=== PATIENT | male | born 1940 | race African-American/Black ===

== ENCOUNTER 2016-12-23 20:10 | Inpatient (IN) | payer MEDICARE, MEDICAID ==
[~2016-12-23] VITALS: Ht 172.7 cm; Wt 57.6 kg
[2016-12-23 20:00] VITALS: BP 116/77
[~2016-12-23 20:10] MED LIST: ACET-2178 PO; AMLO10TA80 PO; ATOR10TA69 PO; CALC0.253 PO; CINA30 PO; COR12 PO; DONE5TAB33 PO; FOLI0.8T23 PO; HYDR-4134 PO; INSLAN SQ; LEVVL SQ; LORA-250 PO; LORA1TAB PO; MEMA10TA11 PO; QUET25TA PO; SEVE800T8 PO; SEVELAMER CARBONATE PO; TRAZ-129 PO
[2016-12-23 20:15] VITALS: BP 116/77
[2016-12-23] MEDS: HYDRALAZINE HCL 25MG TABLET PO SCH (22:30)
[2016-12-23] MEDS: BLOOD SUGAR DIAGNOSTIC STRIP TEST SCH (22:30)
[2016-12-23] MEDS: AMLODIPINE 10MG TABLET PO SCH (22:30)
[2016-12-24] VITALS: BP 111/80
[2016-12-24] MEDS: IPRATROPIUM/ALBUTEROL 0.5-3(2.5)MG/3ML NEB HHN SCH ×4 (01:08→20:04)
[2016-12-24] MEDS: INSULIN LISPRO 100 UNITS/ML SUBCUT SCH ×5 (01:48→20:10)
[2016-12-24] MEDS: INSULIN DETEMIR UD 100 UNITS/ML SYR SUBCUT SCH ×2 (01:48→20:35)
[2016-12-24] MEDS: TRAZODONE HCL 50MG TABLET PO SCH ×2 (01:49→17:25)
[2016-12-24] MEDS: ATORVASTATIN CALCIUM 10MG TABLET PO SCH ×2 (01:49→20:36)
[2016-12-24 04:00] VITALS: BP 110/68
[2016-12-24 06:22] LABS: HEMATOCRIT. 34.8 % (42.0-52.0); HEMOGLOBIN. 10.7 g/dL (14.0-18.0); MEAN CORPUSCULAR HEMOGLOBIN 24.9 pg (28.0-32.0); PLATELET 156 x1000/uL (130-400); RED BLOOD CELL COUNT 4.29 mill/uL (4.7-6.1); RED CELL DISTRIBUTION WIDTH 23.1 % (11.6-14.6)
[2016-12-24] MEDS: BLOOD SUGAR DIAGNOSTIC STRIP TEST SCH ×4 (06:38→20:09)
[2016-12-24 08:00] VITALS: BP 124/68
[2016-12-24] MEDS: QUETIAPINE FUMARATE 25MG TABLET PO SCH (09:00)
[2016-12-24] MEDS: MEMANTINE HCL 10MG TABLET PO SCH (09:00)
[2016-12-24] MEDS: HYDRALAZINE HCL 25MG TABLET PO SCH ×4 (09:00→20:36)
[2016-12-24 10:51] LABS: PLATELET ESTIMATE NORMAL
[2016-12-24 12:34] VITALS: BP 127/68
[2016-12-24 16:05] VITALS: BP 121/63
[2016-12-24 20:00] VITALS: BP 129/82
[2016-12-24] MEDS: AMLODIPINE 10MG TABLET PO SCH (20:37)
[2016-12-25] VITALS: BP 122/72
[2016-12-25] MEDS: IPRATROPIUM/ALBUTEROL 0.5-3(2.5)MG/3ML NEB HHN SCH ×4 (02:26→21:26)
[2016-12-25 04:00] VITALS: BP 116/70
[2016-12-25] MEDS: BLOOD SUGAR DIAGNOSTIC STRIP TEST SCH ×4 (06:19→21:16)
[2016-12-25] MEDS: DEXTROSE 50% WATER 50ML SYRINGE IV PRN (06:19)
[2016-12-25] MEDS: INSULIN LISPRO 100 UNITS/ML SUBCUT SCH ×4 (06:19→21:00)
[2016-12-25 06:46] LABS: EOSINOPHILS % 1.2 % (0.0-5.0); HEMATOCRIT. 37.8 % (42.0-52.0); HEMOGLOBIN. 11.7 g/dL (14.0-18.0); LYMPHOCYTES % 8.4 % (20.0-50.0); MEAN CORPUSCULAR HEMOGLOBIN 25.2 pg (28.0-32.0); MEAN CORPUSCULAR VOLUME 81.3 fL (80.0-94.0); MEAN PLATELET VOLUME 8.2 fl (7.4-10.4); MONOCYTES % 11.6 % (2.0-8.0); NEUTROPHILS % 77.8 % (40.0-76.0); PLATELET 173 x1000/uL (130-400); RED BLOOD CELL COUNT 4.65 mill/uL (4.7-6.1); RED CELL DISTRIBUTION WIDTH 23.2 % (11.6-14.6)
[2016-12-25 08:00] VITALS: BP 114/71
[2016-12-25] MEDS: HYDRALAZINE HCL 25MG TABLET PO SCH ×4 (09:01→21:00)
[2016-12-25] MEDS: MEMANTINE HCL 10MG TABLET PO SCH (09:01)
[2016-12-25] MEDS: QUETIAPINE FUMARATE 25MG TABLET PO SCH (09:02)
[2016-12-25] MEDS: PIPERACILLIN/TAZ 2.25G PREMIX 50 ML IV SCH ×2 (11:14→23:21)
[2016-12-25 12:00] VITALS: BP 111/77
[2016-12-25 12:25] LABS: EOSINOPHILS % 1.1 % (0.0-5.0); HEMATOCRIT. 34.3 % (42.0-52.0); HEMOGLOBIN. 10.5 g/dL (14.0-18.0); LYMPHOCYTES % 7.6 % (20.0-50.0); MEAN CORPUSCULAR VOLUME 81.6 fL (80.0-94.0); MEAN PLATELET VOLUME 7.6 fl (7.4-10.4); MONOCYTES % 12.4 % (2.0-8.0); NEUTROPHILS % 77.9 % (40.0-76.0); PLATELET 153 x1000/uL (130-400); RED CELL DISTRIBUTION WIDTH 22.9 % (11.6-14.6)
[2016-12-25 12:33] LABS: INR 1.1; PROTHROMBIN TIME 11.6 sec
[2016-12-25] MEDS ORDERED: NORMAL SALINE 0.9% 10 ML SYR ONE (14:58)
[2016-12-25] MEDS ORDERED: BACITRACIN ZINC 15GM TUBE TOP ONE (14:58)
[2016-12-25] MEDS ORDERED: BACITRACIN 50,000 UNITS/VIAL ONE (14:58)
[2016-12-25 16:00] VITALS: BP 142/52
[2016-12-25] MEDS ORDERED: PROPOFOL 200MG/20ML VIAL IV ONE (16:09)
[2016-12-25] MEDS ORDERED: LIDOCAINE HCL 1% 20ML VIAL (Pyxis) INJ ONE (16:09)
[2016-12-25] MEDS ORDERED: SUCCINYLCHOLINE CHLORIDE 200MG/10ML VIAL IV ONE (16:09)
[2016-12-25] MEDS ORDERED: ONDANSETRON HCL 4MG/2ML VIAL ONE (16:26)
[2016-12-25] MEDS ORDERED: CEFAZOLIN 1000MG PREMIX 50 ML IV SCH (16:30)
[2016-12-25] MEDS ORDERED: EPHEDRINE SULFATE 50MG/ML VIAL ONE (16:31)
[2016-12-25] MEDS ORDERED: SODIUM CHLORIDE 0.9% 1,000 ML IV SCH (16:47)
[2016-12-25] MEDS ORDERED: HYDROMORPHONE HCL/PF 2MG/ML CPJ IV PRN (17:00)
[2016-12-25] MEDS: TRAZODONE HCL 50MG TABLET PO SCH (17:00)
[2016-12-25 20:00] VITALS: BP 99/63
[2016-12-25] MEDS ORDERED: MORPHINE SULFATE 2 MG/ML CPJ (NOT FOR IM USE) IV PRN (20:00)
[2016-12-25] MEDS: AMLODIPINE 10MG TABLET PO SCH (21:00)
[2016-12-25 21:25] LABS: HEMATOCRIT. 33.6 % (42.0-52.0); HEMOGLOBIN. 10.4 g/dL (14.0-18.0); MEAN CORPUSCULAR HEMOGLOBIN 25.1 pg (28.0-32.0); MEAN CORPUSCULAR VOLUME 80.9 fL (80.0-94.0); PLATELET 157 x1000/uL (130-400); RED BLOOD CELL COUNT 4.15 mill/uL (4.7-6.1); RED CELL DISTRIBUTION WIDTH 23.4 % (11.6-14.6)
[2016-12-25] MEDS: ATORVASTATIN CALCIUM 10MG TABLET PO SCH (21:39)
[2016-12-25] MEDS: INSULIN DETEMIR UD 100 UNITS/ML SYR SUBCUT SCH (21:55)
[2016-12-25 22:05] LABS: PLATELET ESTIMATE NORMAL
[2016-12-26] VITALS: BP 98/61
[2016-12-26] MEDS: IPRATROPIUM/ALBUTEROL 0.5-3(2.5)MG/3ML NEB HHN SCH ×4 (02:55→21:17)
[2016-12-26 04:00] VITALS: BP 114/89
[2016-12-26 06:28] LABS: HEMATOCRIT. 34.1 % (42.0-52.0); HEMOGLOBIN. 10.4 g/dL (14.0-18.0); MEAN CORPUSCULAR HEMOGLOBIN 24.7 pg (28.0-32.0); MEAN CORPUSCULAR VOLUME 80.7 fL (80.0-94.0); MEAN PLATELET VOLUME 8.6 fl (7.4-10.4); PLATELET 203 x1000/uL (130-400); RED BLOOD CELL COUNT 4.22 mill/uL (4.7-6.1)
[2016-12-26] MEDS: DEXTROSE 50% WATER 50ML SYRINGE IV PRN ×2 (06:50→10:55)
[2016-12-26] MEDS: BLOOD SUGAR DIAGNOSTIC STRIP TEST SCH ×4 (06:52→20:51)
[2016-12-26] MEDS: INSULIN LISPRO 100 UNITS/ML SUBCUT SCH ×4 (06:52→20:53)
[2016-12-26 08:00] VITALS: BP 111/74
[2016-12-26] MEDS: HYDRALAZINE HCL 25MG TABLET PO SCH ×4 (09:00→23:00)
[2016-12-26] MEDS: MEMANTINE HCL 10MG TABLET PO SCH (09:04)
[2016-12-26] MEDS: QUETIAPINE FUMARATE 25MG TABLET PO SCH (09:04)
[2016-12-26] MEDS ORDERED: MORPHINE SULFATE 2 MG/ML CPJ (NOT FOR IM USE) IV PRN (09:15)
[2016-12-26] MEDS: PIPERACILLIN/TAZ 2.25G PREMIX 50 ML IV SCH ×2 (10:26→23:00)
[2016-12-26 12:00] VITALS: BP 96/65
[2016-12-26 14:07] LABS: PLATELET ESTIMATE NORMAL
[2016-12-26 16:00] VITALS: BP 113/61
[2016-12-26] MEDS: TRAZODONE HCL 50MG TABLET PO SCH (17:23)
[2016-12-26 20:00] VITALS: BP 118/76
[2016-12-26] MEDS: AMLODIPINE 10MG TABLET PO SCH (20:52)
[2016-12-26] MEDS: ATORVASTATIN CALCIUM 10MG TABLET PO SCH (20:52)
[2016-12-26] MEDS: INSULIN DETEMIR UD 100 UNITS/ML SYR SUBCUT SCH (20:53)
[2016-12-27] VITALS: BP 111/77
[2016-12-27] MEDS: IPRATROPIUM/ALBUTEROL 0.5-3(2.5)MG/3ML NEB HHN SCH ×4 (02:08→20:17)
[2016-12-27 04:00] VITALS: BP 103/77
[2016-12-27] MEDS: DEXTROSE 50% WATER 50ML SYRINGE IV PRN ×2 (05:37→10:49)
[2016-12-27] MEDS: BLOOD SUGAR DIAGNOSTIC STRIP TEST SCH ×4 (06:18→21:00)
[2016-12-27] MEDS: INSULIN LISPRO 100 UNITS/ML SUBCUT SCH ×3 (06:18→16:51)
[2016-12-27 08:00] VITALS: BP 123/78
[2016-12-27] MEDS: QUETIAPINE FUMARATE 25MG TABLET PO SCH (08:14)
[2016-12-27] MEDS: MEMANTINE HCL 10MG TABLET PO SCH (08:14)
[2016-12-27] MEDS: HYDRALAZINE HCL 25MG TABLET PO SCH ×4 (08:18→22:14)
[2016-12-27] MEDS ORDERED: LACTULOSE 20G/30ML UDC PO PRN (08:45)
[2016-12-27] MEDS: PIPERACILLIN/TAZ 2.25G PREMIX 50 ML IV SCH ×2 (10:33→22:13)
[2016-12-27 12:00] VITALS: BP 110/66
[2016-12-27] MEDS ORDERED: DEXTROSE 10% WATER 500 ML IV ONE (12:00)
[2016-12-27 16:00] VITALS: BP 121/73
[2016-12-27] MEDS: TRAZODONE HCL 50MG TABLET PO SCH (17:10)
[2016-12-27 20:00] VITALS: BP 120/77
[2016-12-27] MEDS: AMLODIPINE 10MG TABLET PO SCH (22:14)
[2016-12-27] MEDS: ATORVASTATIN CALCIUM 10MG TABLET PO SCH (22:14)
[2016-12-28] VITALS: BP 115/75
[2016-12-28] MEDS: INSULIN LISPRO 100 UNITS/ML SUBCUT SCH ×5 (00:03→20:50)
[2016-12-28] MEDS: IPRATROPIUM/ALBUTEROL 0.5-3(2.5)MG/3ML NEB HHN SCH ×4 (01:27→20:54)
[2016-12-28 04:00] VITALS: BP 123/73
[2016-12-28] MEDS: BLOOD SUGAR DIAGNOSTIC STRIP TEST SCH ×4 (06:42→20:49)
[2016-12-28 06:53] LABS: HEMATOCRIT. 32.9 % (42.0-52.0); MEAN CORPUSCULAR HEMOGLOBIN 24.8 pg (28.0-32.0); MEAN CORPUSCULAR VOLUME 81.2 fL (80.0-94.0); MEAN PLATELET VOLUME 8.1 fl (7.4-10.4); PLATELET 193 x1000/uL (130-400); RED BLOOD CELL COUNT 4.05 mill/uL (4.7-6.1); RED CELL DISTRIBUTION WIDTH 22.4 % (11.6-14.6)
[2016-12-28 08:00] VITALS: BP 110/73
[2016-12-28] MEDS: MEMANTINE HCL 10MG TABLET PO SCH (09:10)
[2016-12-28] MEDS: HYDRALAZINE HCL 25MG TABLET PO SCH ×4 (09:10→20:47)
[2016-12-28] MEDS: QUETIAPINE FUMARATE 25MG TABLET PO SCH (09:10)
[2016-12-28 12:00] VITALS: BP 101/63
[2016-12-28] MEDS: PIPERACILLIN/TAZ 2.25G PREMIX 50 ML IV SCH ×2 (12:28→23:20)
[2016-12-28 16:00] VITALS: BP 105/73
[2016-12-28 17:03] LABS: PLATELET ESTIMATE NORMAL
[2016-12-28] MEDS: TRAZODONE HCL 50MG TABLET PO SCH (18:09)
[2016-12-28 20:00] VITALS: BP 114/75
[2016-12-28] MEDS: ATORVASTATIN CALCIUM 10MG TABLET PO SCH (20:45)
[2016-12-28] MEDS: AMLODIPINE 10MG TABLET PO SCH (20:52)
[2016-12-29] VITALS: BP 112/69
[2016-12-29] MEDS: IPRATROPIUM/ALBUTEROL 0.5-3(2.5)MG/3ML NEB HHN SCH ×4 (02:21→20:57)
[2016-12-29 04:00] VITALS: BP 108/70
[2016-12-29 06:36] LABS: HEMATOCRIT. 30.6 % (42.0-52.0); HEMOGLOBIN. 9.4 g/dL (14.0-18.0); MEAN CORPUSCULAR HEMOGLOBIN 24.9 pg (28.0-32.0); MEAN CORPUSCULAR VOLUME 80.9 fL (80.0-94.0); MEAN PLATELET VOLUME 8.3 fl (7.4-10.4); PLATELET 194 x1000/uL (130-400); RED BLOOD CELL COUNT 3.77 mill/uL (4.7-6.1); RED CELL DISTRIBUTION WIDTH 21.8 % (11.6-14.6)
[2016-12-29] MEDS: INSULIN LISPRO 100 UNITS/ML SUBCUT SCH ×4 (06:36→21:00)
[2016-12-29 08:00] VITALS: BP 103/48
[2016-12-29] MEDS: HYDRALAZINE HCL 25MG TABLET PO SCH ×5 (08:43→21:00)
[2016-12-29] MEDS: QUETIAPINE FUMARATE 25MG TABLET PO SCH (09:18)
[2016-12-29] MEDS: MEMANTINE HCL 10MG TABLET PO SCH (09:18)
[2016-12-29 11:35] LABS: NUCLEATED RED BLOOD CELLS 1 /100 WBC
[2016-12-29 11:36] LABS: PLATELET ESTIMATE NORMAL
[2016-12-29] MEDS: BLOOD SUGAR DIAGNOSTIC STRIP TEST SCH ×3 (11:58→21:44)
[2016-12-29 12:00] VITALS: BP 99/62
[2016-12-29] MEDS: PIPERACILLIN/TAZ 2.25G PREMIX 50 ML IV SCH ×2 (12:03→23:36)
[2016-12-29 16:00] VITALS: BP 101/62
[2016-12-29] MEDS: TRAZODONE HCL 50MG TABLET PO SCH (17:39)
[2016-12-29 20:00] VITALS: BP 97/64
[2016-12-29] MEDS: AMLODIPINE 10MG TABLET PO SCH (21:00)
[2016-12-29] MEDS: ATORVASTATIN CALCIUM 10MG TABLET PO SCH (22:47)
[2016-12-30] VITALS: BP 98/72
[2016-12-30] MEDS: IPRATROPIUM/ALBUTEROL 0.5-3(2.5)MG/3ML NEB HHN SCH ×4 (01:30→20:58)
[2016-12-30 04:00] VITALS: BP 114/78
[2016-12-30] MEDS: BLOOD SUGAR DIAGNOSTIC STRIP TEST SCH ×4 (07:31→21:51)
[2016-12-30] MEDS: INSULIN LISPRO 100 UNITS/ML SUBCUT SCH ×4 (08:11→22:32)
[2016-12-30] MEDS: MEMANTINE HCL 10MG TABLET PO SCH (08:12)
[2016-12-30] MEDS: QUETIAPINE FUMARATE 25MG TABLET PO SCH (08:12)
[2016-12-30] MEDS: HYDRALAZINE HCL 25MG TABLET PO SCH ×4 (08:14→21:51)
[2016-12-30 08:28] VITALS: BP 118/73
[2016-12-30 12:05] LABS: BG BASE EXCESS -0.5 mmol/L (-2.0-2.0); BG CARBOXYHEMOGLOBIN 0.9 % (0.5-1.5); BG DEOXYHEMOGLOBIN 10.2 % (0.0-5.0); BG FRACTION INSPIRED OXYGEN 28; BG HCO3 ACT 22.3 mmol/L (22.0-26.0); BG METHEMOGLOBIN 0.3 % (0.0-1.5); BG OXYGEN SATURATION 89.7 % (92.0-98.5); BG OXYHEMOGLOBIN 88.6 % (94.0-97.0); BG PCO2 30.2 mmHg (35.0-45.0); BG PH 7.487 (7.350-7.450); BG PO2 59.7 mmHg (75.0-100.0); BG SAMPLE SITE RIGHT BRACHIAL; BG TOTAL HEMOGLOBIN 9.8 g/dL (12.0-18.0); BG VENT MODE NASAL CANNULA
[2016-12-30] MEDS: PIPERACILLIN/TAZ 2.25G PREMIX 50 ML IV SCH ×2 (12:36→23:56)
[2016-12-30] MEDS: TRAZODONE HCL 50MG TABLET PO SCH (17:00)
[2016-12-30 20:00] VITALS: BP 126/76
[2016-12-30] MEDS: ATORVASTATIN CALCIUM 10MG TABLET PO SCH (21:50)
[2016-12-30] MEDS: AMLODIPINE 10MG TABLET PO SCH (21:50)
[2016-12-31] VITALS: BP 127/71
[2016-12-31] MEDS: IPRATROPIUM/ALBUTEROL 0.5-3(2.5)MG/3ML NEB HHN SCH ×3 (01:50→14:17)
[2016-12-31 04:00] VITALS: BP 112/73
[2016-12-31] MEDS: BLOOD SUGAR DIAGNOSTIC STRIP TEST SCH ×2 (06:05→12:26)
[2016-12-31] MEDS: INSULIN LISPRO 100 UNITS/ML SUBCUT SCH ×2 (06:47→12:40)
[2016-12-31 07:02] LABS: HEMATOCRIT. 32.5 % (42.0-52.0); MEAN CORPUSCULAR HEMOGLOBIN 25.2 pg (28.0-32.0); MEAN CORPUSCULAR VOLUME 82.3 fL (80.0-94.0); PLATELET 238 x1000/uL (130-400); RED BLOOD CELL COUNT 3.96 mill/uL (4.7-6.1); RED CELL DISTRIBUTION WIDTH 21.3 % (11.6-14.6)
[2016-12-31 08:00] VITALS: BP 112/71
[2016-12-31] MEDS: QUETIAPINE FUMARATE 25MG TABLET PO SCH (08:46)
[2016-12-31 09:00] LABS: PLATELET ESTIMATE NORMAL
[2016-12-31] MEDS: HYDRALAZINE HCL 25MG TABLET PO SCH ×2 (09:00→14:33)
[2016-12-31] MEDS: MEMANTINE HCL 10MG TABLET PO SCH (09:15)
[2016-12-31 11:19] VITALS: BP 123/69
[2016-12-31 12:00] VITALS: BP 125/66
[2016-12-31] MEDS ORDERED: LACTULOSE 20G/30ML UDC PO NR (14:15)
== END 2016-12-31 16:45 | disposition home or self-care (01) | DRG 239 ==
LOC: 8WST 20:10
PROVIDERS: ADMIT Internal Medicine; ATTEND Internal Medicine
PROC: 5A1D60Z (ICD-10-PCS; 2016-12-24)
PROC: 0Y6G0ZZ Detachment at Left Knee Region, Open Approach (ICD-10-PCS; principal; 2016-12-25 15:30)
DX: E11.52 Type 2 diabetes mellitus with diabetic peripheral angiopathy with gangrene (principal); N18.6 End stage renal disease; I12.0 Hypertensive chronic kidney disease with stage 5 chronic kidney disease or end stage renal disease; I42.9 Cardiomyopathy, unspecified; E46 Unspecified protein-calorie malnutrition; Z68.1 Body mass index [BMI] 19.9 or less, adult; L89.629 Pressure ulcer of left heel, unspecified stage; F03.90 Unspecified dementia, unspecified severity, without behavioral disturbance, psychotic disturbance, mood disturbance, and anxiety; R09.02 Hypoxemia; D64.9 Anemia, unspecified; E03.9 Hypothyroidism, unspecified; E11.621 Type 2 diabetes mellitus with foot ulcer; E11.649 Type 2 diabetes mellitus with hypoglycemia without coma; F29 Unspecified psychosis not due to a substance or known physiological condition; J44.9 Chronic obstructive pulmonary disease, unspecified; E11.22 Type 2 diabetes mellitus with diabetic chronic kidney disease; M24.562 Contracture, left knee; Z79.4 Long term (current) use of insulin; Z79.899 Other long term (current) drug therapy; Z99.2 Dependence on renal dialysis; Z87.891 Personal history of nicotine dependence; Z89.512 Acquired absence of left leg below knee; Z89.612 Acquired absence of left leg above knee
CPT/HCPCS: 36415; 36600; 73630; 80048; 80051; 82375; 82805; 82962; 83036; 84100; 84132; 85025; 85610; 85730; 86850; 86900; 86920; 88307; 88311; 94640; 94664; A4216; A6261; C1893; J0171; J0330; J1815; J2270; J2405; J2543; J2704; J3490; J7030; J7040; J7050; J7620

== ENCOUNTER 2017-01-10 10:07 | Inpatient (IN) | payer MEDICARE, MEDICAID ==
[~2017-01-10] VITALS: Ht 170.2 cm; Wt 55.3 kg
[~2017-01-10 10:07] MED LIST changes: -MEMA10TA11 PO; +MEMA10TA2 PO
[2017-01-10 10:53] LABS: BASOPHILS % 1.3 % (0.0-2.0); EOSINOPHILS % 0.3 % (0.0-5.0); HEMATOCRIT. 31.6 % (42.0-52.0); HEMOGLOBIN. 9.9 g/dL (14.0-18.0); LYMPHOCYTES % 7.3 % (20.0-50.0); MEAN CORPUSCULAR HEMOGLOBIN 24.9 pg (28.0-32.0); MEAN CORPUSCULAR VOLUME 79.1 fL (80.0-94.0); MEAN PLATELET VOLUME 7.9 fl (7.4-10.4); MONOCYTES % 5.3 % (2.0-8.0); NEUTROPHILS % 85.8 % (40.0-76.0); PLATELET 150 x1000/uL (130-400); RED BLOOD CELL COUNT 3.99 mill/uL (4.7-6.1); RED CELL DISTRIBUTION WIDTH 21.8 % (11.6-14.6)
[2017-01-10 11:01] LABS: AMMONIA < 10 uMol/L (<32); CARBON DIOXIDE 28 mEq/L (21-32); CHLORIDE 99 mEq/L (98-107); ETHANOL BLOOD < 10 mg/dL
[2017-01-10 11:05] LABS: CREATINE KINASE 98 IU/L (39-308); TROPONIN I 0.09 ng/mL (0.00-0.04)
[2017-01-10 11:51] LABS: BG BASE EXCESS 2.4 mmol/L (-2.0-2.0); BG DEOXYHEMOGLOBIN 9.9 % (0.0-5.0); BG FRACTION INSPIRED OXYGEN 28; BG HCO3 ACT 24.4 mmol/L (22.0-26.0); BG METHEMOGLOBIN 0.3 % (0.0-1.5); BG OXYHEMOGLOBIN 88.8 % (94.0-97.0); BG PH 7.542 (7.350-7.450); BG PO2 57.3 mmHg (75.0-100.0); BG SAMPLE SITE RIGHT BRACHIAL; BG TOTAL HEMOGLOBIN 10.6 g/dL (12.0-18.0); BG VENT MODE NASAL CANNULA
[2017-01-10] MEDS ORDERED: CEFTRIAXONE 1 G PREMIX 50 ML IV ONE (13:45)
[2017-01-10] MEDS ORDERED: AZITHROMYCIN 500 MG in DEXT 5% WATER 250 ML IV SCH (13:45)
[2017-01-10 15:00] VITALS: BP 95/69
[2017-01-10] MEDS ORDERED: HYDR-4005 PO (16:17)
[2017-01-10] MEDS ORDERED: HYDROCODONE/APAP 7.5/325MG 1 TAB TABLET PO PRN (16:30)
[2017-01-10] MEDS ORDERED: DEXTROSE 50% WATER 50ML SYRINGE IV PRN (16:30)
[2017-01-10] MEDS ORDERED: IPRATROPIUM/ALBUTEROL 0.5-3(2.5)MG/3ML NEB HHN PRN (16:30)
[2017-01-10] MEDS ORDERED: LACTULOSE 20G/30ML UDC PO PRN (16:30)
[2017-01-10] MEDS ORDERED: LORAZEPAM 1MG TABLET PO PRN (16:30)
[2017-01-10] MEDS: BLOOD SUGAR DIAGNOSTIC STRIP TEST SCH ×2 (16:58→21:22)
[2017-01-10] MEDS ORDERED: QUETIAPINE FUMARATE 25MG TABLET PO SCH (17:00)
[2017-01-10 18:45] VITALS: BP 124/89
[2017-01-10] MEDS: INSULIN LISPRO 100 UNITS/ML SUBCUT SCH ×2 (18:50→21:00)
[2017-01-10 20:00] VITALS: BP 129/84
[2017-01-10] MEDS: IPRATROPIUM/ALBUTEROL 0.5-3(2.5)MG/3ML NEB HHN SCH (20:49)
[2017-01-10] MEDS ORDERED: TRAZODONE HCL 50MG TABLET PO SCH (21:00)
[2017-01-10] MEDS ORDERED: ATORVASTATIN CALCIUM 10MG TABLET PO SCH (21:00)
[2017-01-11] VITALS (45 sets, daily range): BP systolic 73–152; BP diastolic 35–104
[2017-01-11] MEDS: IPRATROPIUM/ALBUTEROL 0.5-3(2.5)MG/3ML NEB HHN SCH ×4 (01:09→20:11)
[2017-01-11] MEDS: BLOOD SUGAR DIAGNOSTIC STRIP TEST SCH ×4 (06:30→23:06)
[2017-01-11] MEDS: INSULIN LISPRO 100 UNITS/ML SUBCUT SCH ×4 (07:41→23:06)
[2017-01-11] MEDS ORDERED: LORAZEPAM 2MG/ML CPJ IV SCH (08:30)
[2017-01-11] MEDS ORDERED: QUETIAPINE FUMARATE 25MG TABLET PO SCH ×2 (09:00→21:00)
[2017-01-11] MEDS ORDERED: MEMANTINE HCL 5MG TABLET PO SCH (09:00)
[2017-01-11] MEDS ORDERED: TRAZODONE HCL 50MG TABLET PO SCH (09:00)
[2017-01-11 10:20] LABS: INR 1.2
[2017-01-11] MEDS ORDERED: CALCIUM CHLORIDE 1GM/10ML SYR IV ONE (11:10)
[2017-01-11] MEDS ORDERED: EPINEPHRINE 0.1MG/ML (1:10,000) 10ML SYR ONE (11:10)
[2017-01-11] MEDS ORDERED: SODIUM BICARBONATE 7.5% 0.9 MEQ/ML 50ML SYR IV ONE (11:10)
[2017-01-11] MEDS ORDERED: NALOXONE HCL 0.4 MG/ML 1ML VIAL ONE (11:10)
[2017-01-11] MEDS ORDERED: DEXTROSE 50% WATER 50ML SYRINGE IV ONE (11:10)
[2017-01-11] MEDS: CEFTRIAXONE 1 G PREMIX 50 ML IV SCH (12:07)
[2017-01-11] MEDS ORDERED: LIDOCAINE HCL 1% 20ML VIAL (Pyxis) INJ ONE (13:41)
[2017-01-11] MEDS ORDERED: SODIUM BICARBONATE 4% (2.4MEQ) 5ML VIAL IV ONE (13:41)
[2017-01-11] MEDS ORDERED: HEPARIN 1000 UNITS/ML 10ML ONE (13:41)
[2017-01-11] MEDS ORDERED: AZITHROMYCIN 500 MG in DEXT 5% WATER 250 ML IV SCH (14:00)
[2017-01-11] MEDS ORDERED: FENTANYL CITRATE/PF 50MCG/ML 2ML VIAL ONE (14:17)
[2017-01-11] MEDS ORDERED: MIDAZOLAM HCL 2 MG/2 ML VIAL ONE (14:17)
[2017-01-11] MEDS ORDERED: HEPARIN 5000 UNITS/ML VIAL IV ONE (14:45)
[2017-01-11] MEDS ORDERED: FENTANYL CITRATE/PF 50MCG/ML 2ML VIAL IV NR (14:45)
[2017-01-11] MEDS ORDERED: IOHEXOL-300 100 ML BOTTLE ONE ×2 (15:09→15:32)
[2017-01-11] MEDS ORDERED: ALTEPLASE 2MG/VIAL ITC ONE (15:15)
[2017-01-11] MEDS ORDERED: PHENYLEPHRINE 20 MG in DEXT 5% WATER 248 ML IV PRN (18:30)
[2017-01-11] MEDS ORDERED: NOREPINEPHRINE 8 MG in DEXT 5% WATER 242 ML IV PRN (18:30)
[2017-01-11 18:38] LABS: BG BASE EXCESS -4.5 mmol/L (-2.0-2.0); BG CARBOXYHEMOGLOBIN 0.5 % (0.5-1.5); BG DEOXYHEMOGLOBIN 0.3 % (0.0-5.0); BG FRACTION INSPIRED OXYGEN 100; BG HCO3 ACT 19.8 mmol/L (22.0-26.0); BG METHEMOGLOBIN 0.3 % (0.0-1.5); BG OXYGEN SATURATION 99.7 % (92.0-98.5); BG OXYHEMOGLOBIN 98.9 % (94.0-97.0); BG PCO2 33.6 mmHg (35.0-45.0); BG PH 7.389 (7.350-7.450); BG PO2 437.2 mmHg (75.0-100.0); BG SAMPLE SITE RIGHT BRACHIAL; BG TIDAL VOLUME(mL) 500 mL; BG VENT MODE VENT - A/C; BG VENT RATE 14 set
[2017-01-11 19:06] LABS: BASOPHILS % 0.9 % (0.0-2.0); EOSINOPHILS % 0.6 % (0.0-5.0); LYMPHOCYTES % 8.2 % (20.0-50.0); MEAN CORPUSCULAR HEMOGLOBIN 25.2 pg (28.0-32.0); MEAN CORPUSCULAR VOLUME 80.7 fL (80.0-94.0); MEAN PLATELET VOLUME 8.9 fl (7.4-10.4); MONOCYTES % 3.5 % (2.0-8.0); NEUTROPHILS % 86.8 % (40.0-76.0); PLATELET 138 x1000/uL (130-400); RED BLOOD CELL COUNT 3.59 mill/uL (4.7-6.1); RED CELL DISTRIBUTION WIDTH 22.2 % (11.6-14.6)
[2017-01-11 19:20] LABS: PLATELET ESTIMATE SLIGHTLY DECREASED
[2017-01-11 19:57] LABS: PHOSPHORUS 8.5 mg/dL (2.5-4.9)
[2017-01-11] MEDS ORDERED: LORAZEPAM 2MG/ML CPJ IV PRN (20:30)
[2017-01-11] MEDS ORDERED: ALBUMIN HUMAN 12.5G/250ML (5%) IV NR ×2 (20:30)
[2017-01-11] MEDS ORDERED: PROPOFOL 10MG/ML 100ML 100 ML IV PRN (20:30)
[2017-01-11] MEDS ORDERED: MORPHINE SULFATE 2 MG/ML CPJ (NOT FOR IM USE) IV PRN (20:30)
[2017-01-11 21:51] LABS: BG BASE EXCESS 1.1 mmol/L (-2.0-2.0); BG CARBOXYHEMOGLOBIN 0.3 % (0.5-1.5); BG DEOXYHEMOGLOBIN 0.7 % (0.0-5.0); BG FRACTION INSPIRED OXYGEN 60; BG HCO3 ACT 24.1 mmol/L (22.0-26.0); BG METHEMOGLOBIN 0.5 % (0.0-1.5); BG OXYGEN SATURATION 99.3 % (92.0-98.5); BG OXYHEMOGLOBIN 98.5 % (94.0-97.0); BG PH 7.494 (7.350-7.450); BG PO2 214.6 mmHg (75.0-100.0); BG SAMPLE SITE RIGHT BRACHIAL; BG TIDAL VOLUME(mL) 500 mL; BG TOTAL HEMOGLOBIN 9.2 g/dL (12.0-18.0); BG VENT MODE VENT - A/C; BG VENT RATE 14 set
[2017-01-11] MEDS ORDERED: INSULIN DETEMIR UD 100 UNITS/ML SYR SUBCUT SCH (22:00)
[2017-01-12] VITALS (53 sets, daily range): BP systolic 75–144; BP diastolic 16–93
[2017-01-12 00:17] LABS: BG BASE EXCESS 0.3 mmol/L (-2.0-2.0); BG CARBOXYHEMOGLOBIN 0.3 % (0.5-1.5); BG DEOXYHEMOGLOBIN 1.6 % (0.0-5.0); BG FRACTION INSPIRED OXYGEN 45; BG HCO3 ACT 22.7 mmol/L (22.0-26.0); BG METHEMOGLOBIN 0.4 % (0.0-1.5); BG OXYGEN SATURATION 98.4 % (92.0-98.5); BG OXYHEMOGLOBIN 97.7 % (94.0-97.0); BG PCO2 28.3 mmHg (35.0-45.0); BG PH 7.522 (7.350-7.450); BG PO2 134.7 mmHg (75.0-100.0); BG SAMPLE SITE RIGHT BRACHIAL; BG TIDAL VOLUME(mL) 500 mL; BG TOTAL HEMOGLOBIN 8.8 g/dL (12.0-18.0); BG VENT MODE VENT - A/C; BG VENT RATE 14 set
[2017-01-12] MEDS: IPRATROPIUM/ALBUTEROL 0.5-3(2.5)MG/3ML NEB HHN SCH ×4 (01:54→20:10)
[2017-01-12 05:14] LABS: HEMATOCRIT. 22.7 % (42.0-52.0); HEMOGLOBIN. 7.2 g/dL (14.0-18.0); MEAN CORPUSCULAR HEMOGLOBIN 25.1 pg (28.0-32.0); MEAN CORPUSCULAR VOLUME 78.9 fL (80.0-94.0); PLATELET 139 x1000/uL (130-400); RED BLOOD CELL COUNT 2.88 mill/uL (4.7-6.1); RED CELL DISTRIBUTION WIDTH 21.9 % (11.6-14.6)
[2017-01-12 05:45] LABS: CARBON DIOXIDE 25 mEq/L (21-32); CHLORIDE 100 mEq/L (98-107); PHOSPHORUS 4.9 mg/dL (2.5-4.9)
[2017-01-12] MEDS: BLOOD SUGAR DIAGNOSTIC STRIP TEST SCH ×4 (07:00→23:45)
[2017-01-12] MEDS: INSULIN LISPRO 100 UNITS/ML SUBCUT SCH ×4 (07:00→23:56)
[2017-01-12 08:40] LABS: BG BASE EXCESS 1.1 mmol/L (-2.0-2.0); BG CARBOXYHEMOGLOBIN 1.1 % (0.5-1.5); BG DEOXYHEMOGLOBIN 3.1 % (0.0-5.0); BG FRACTION INSPIRED OXYGEN 28; BG HCO3 ACT 23.2 mmol/L (22.0-26.0); BG METHEMOGLOBIN 0.3 % (0.0-1.5); BG OXYGEN SATURATION 96.9 % (92.0-98.5); BG OXYHEMOGLOBIN 95.5 % (94.0-97.0); BG PCO2 26.7 mmHg (35.0-45.0); BG PH 7.557 (7.350-7.450); BG PO2 85.9 mmHg (75.0-100.0); BG SAMPLE SITE RIGHT BRACHIAL; BG TIDAL VOLUME(mL) 500 mL; BG TOTAL HEMOGLOBIN 7.4 g/dL (12.0-18.0); BG VENT MODE VENT - A/C; BG VENT RATE 14 set
[2017-01-12 09:44] LABS: HEMATOCRIT 22.3 % (42.0-52.0); HEMOGLOBIN 7.1 g/dL (14.0-18.0); MEAN CORPUSCULAR VOLUME 78.8 fL (80.0-94.0); PLATELET 130 x1000/uL (130-400); RED BLOOD CELL COUNT 2.84 mill/uL (4.7-6.1); RED CELL DISTRIBUTION WIDTH 21.6 % (11.6-14.6)
[2017-01-12] MEDS: PANTOPRAZOLE SODIUM 40 MG/VIAL IV SCH (09:48)
[2017-01-12 10:35] LABS: PLATELET ESTIMATE NORMAL
[2017-01-12] MEDS: CEFTRIAXONE 1 G PREMIX 50 ML IV SCH (11:27)
[2017-01-12 23:13] LABS: HEMOGLOBIN 9.2 g/dL (14.0-18.0)
[2017-01-13] VITALS (36 sets, daily range): BP systolic 32–140; BP diastolic 15–93
[2017-01-13] MEDS: IPRATROPIUM/ALBUTEROL 0.5-3(2.5)MG/3ML NEB HHN SCH ×4 (01:51→20:16)
[2017-01-13] MEDS: INSULIN LISPRO 100 UNITS/ML SUBCUT SCH ×3 (05:34→18:00)
[2017-01-13] MEDS: BLOOD SUGAR DIAGNOSTIC STRIP TEST SCH ×4 (05:34→23:58)
[2017-01-13 05:41] LABS: HEMATOCRIT. 29.5 % (42.0-52.0); HEMOGLOBIN. 9.7 g/dL (14.0-18.0); MEAN CORPUSCULAR HEMOGLOBIN 26.7 pg (28.0-32.0); MEAN CORPUSCULAR VOLUME 81.6 fL (80.0-94.0); MEAN PLATELET VOLUME 8.5 fl (7.4-10.4); PLATELET 120 x1000/uL (130-400); RED BLOOD CELL COUNT 3.62 mill/uL (4.7-6.1); RED CELL DISTRIBUTION WIDTH 20.3 % (11.6-14.6)
[2017-01-13] MEDS ORDERED: HETASTARCH/NORMAL SALINE 250 ML IV SCH (08:30)
[2017-01-13] MEDS ORDERED: HETASTARCH/NORMAL SALINE 500 ML PLAST..BAG IV ONE (08:30)
[2017-01-13] MEDS: PANTOPRAZOLE SODIUM 40 MG/VIAL IV SCH (08:53)
[2017-01-13 09:27] LABS: PLATELET ESTIMATE SLIGHTLY DECREASED
[2017-01-13 12:33] LABS: BG BASE EXCESS 4.4 mmol/L (-2.0-2.0); BG CARBOXYHEMOGLOBIN 0.8 % (0.5-1.5); BG DEOXYHEMOGLOBIN 5.2 % (0.0-5.0); BG FRACTION INSPIRED OXYGEN 30; BG HCO3 ACT 25.8 mmol/L (22.0-26.0); BG METHEMOGLOBIN 0.1 % (0.0-1.5); BG OXYGEN SATURATION 94.8 % (92.0-98.5); BG OXYHEMOGLOBIN 93.9 % (94.0-97.0); BG PH 7.598 (7.350-7.450); BG SAMPLE SITE RIGHT BRACHIAL; BG TIDAL VOLUME(mL) 500 mL; BG TOTAL HEMOGLOBIN 9.1 g/dL (12.0-18.0); BG VENT MODE VENT - A/C; BG VENT RATE 12 set
[2017-01-13] MEDS: CEFTRIAXONE 1 G PREMIX 50 ML IV SCH (13:18)
[2017-01-14] VITALS (23 sets, daily range): BP systolic 97–164; BP diastolic 49–125
[2017-01-14] MEDS: INSULIN LISPRO 100 UNITS/ML SUBCUT SCH ×4 (00:05→18:00)
[2017-01-14] MEDS: IPRATROPIUM/ALBUTEROL 0.5-3(2.5)MG/3ML NEB HHN SCH ×4 (01:54→20:08)
[2017-01-14 05:38] LABS: HEMATOCRIT. 30.3 % (42.0-52.0); HEMOGLOBIN. 9.7 g/dL (14.0-18.0); MEAN CORPUSCULAR HEMOGLOBIN 26.7 pg (28.0-32.0); MEAN CORPUSCULAR VOLUME 82.9 fL (80.0-94.0); MEAN PLATELET VOLUME 8.9 fl (7.4-10.4); PLATELET 112 x1000/uL (130-400); RED BLOOD CELL COUNT 3.65 mill/uL (4.7-6.1); RED CELL DISTRIBUTION WIDTH 21.4 % (11.6-14.6)
[2017-01-14] MEDS: BLOOD SUGAR DIAGNOSTIC STRIP TEST SCH ×3 (05:40→18:00)
[2017-01-14 07:01] LABS: PLATELET ESTIMATE DECREASED
[2017-01-14 08:14] LABS: BG BASE EXCESS -0.5 mmol/L (-2.0-2.0); BG CARBOXYHEMOGLOBIN 0.2 % (0.5-1.5); BG DEOXYHEMOGLOBIN 2.4 % (0.0-5.0); BG FRACTION INSPIRED OXYGEN 35; BG HCO3 ACT 21.1 mmol/L (22.0-26.0); BG OXYGEN SATURATION 97.6 % (92.0-98.5); BG OXYHEMOGLOBIN 97.4 % (94.0-97.0); BG PCO2 25.1 mmHg (35.0-45.0); BG PH 7.542 (7.350-7.450); BG PO2 101.2 mmHg (75.0-100.0); BG SAMPLE SITE RIGHT RADIAL; BG TIDAL VOLUME(mL) 500 mL; BG TOTAL HEMOGLOBIN 9.9 g/dL (12.0-18.0); BG VENT MODE VENT - A/C; BG VENT RATE 12 set
[2017-01-14] MEDS: PANTOPRAZOLE SODIUM 40 MG/VIAL IV SCH (10:12)
[2017-01-14] MEDS: CEFTRIAXONE 1 G PREMIX 50 ML IV SCH (11:57)
[2017-01-14 12:57] LABS: BG BASE EXCESS 2.9 mmol/L (-2.0-2.0); BG CARBOXYHEMOGLOBIN 0.3 % (0.5-1.5); BG DEOXYHEMOGLOBIN 1.3 % (0.0-5.0); BG FRACTION INSPIRED OXYGEN 35; BG HCO3 ACT 25.1 mmol/L (22.0-26.0); BG OXYGEN SATURATION 98.7 % (92.0-98.5); BG OXYHEMOGLOBIN 98.4 % (94.0-97.0); BG PCO2 30.3 mmHg (35.0-45.0); BG PH 7.536 (7.350-7.450); BG PO2 137.5 mmHg (75.0-100.0); BG PRESSURE SUPPORT 8; BG SAMPLE SITE RIGHT BRACHIAL; BG TOTAL HEMOGLOBIN 10.5 g/dL (12.0-18.0); BG VENT MODE VENT - CPAP
[2017-01-15] VITALS (26 sets, daily range): BP systolic 91–133; BP diastolic 33–87
[2017-01-15] MEDS: IPRATROPIUM/ALBUTEROL 0.5-3(2.5)MG/3ML NEB HHN SCH ×4 (02:05→21:09)
[2017-01-15 05:42] LABS: HEMATOCRIT. 30.6 % (42.0-52.0); HEMOGLOBIN. 9.8 g/dL (14.0-18.0); MEAN CORPUSCULAR HEMOGLOBIN 26.7 pg (28.0-32.0); MEAN CORPUSCULAR VOLUME 83.8 fL (80.0-94.0); MEAN PLATELET VOLUME 10.1 fl (7.4-10.4); PLATELET 85 x1000/uL (130-400); RED BLOOD CELL COUNT 3.66 mill/uL (4.7-6.1); RED CELL DISTRIBUTION WIDTH 21.5 % (11.6-14.6)
[2017-01-15] MEDS ORDERED: ALBUMIN HUMAN 25GM/100ML (25%) IV NR (07:06)
[2017-01-15] MEDS: INSULIN LISPRO 100 UNITS/ML SUBCUT SCH ×4 (08:20→21:00)
[2017-01-15] MEDS: BLOOD SUGAR DIAGNOSTIC STRIP TEST SCH ×4 (08:48→21:00)
[2017-01-15] MEDS: PANTOPRAZOLE SODIUM 40 MG/VIAL IV SCH (08:48)
[2017-01-15 10:14] LABS: PLATELET ESTIMATE DECREASED
[2017-01-15] MEDS: CEFTRIAXONE 1 G PREMIX 50 ML IV SCH (15:41)
[2017-01-16] VITALS (7 sets, daily range): BP systolic 90–158; BP diastolic 24–90
[2017-01-16] MEDS: IPRATROPIUM/ALBUTEROL 0.5-3(2.5)MG/3ML NEB HHN SCH ×4 (02:41→20:29)
[2017-01-16] MEDS: BLOOD SUGAR DIAGNOSTIC STRIP TEST SCH ×4 (07:30→21:00)
[2017-01-16] MEDS: INSULIN LISPRO 100 UNITS/ML SUBCUT SCH ×4 (08:00→21:00)
[2017-01-16] MEDS: PANTOPRAZOLE SODIUM 40 MG/VIAL IV SCH (08:43)
[2017-01-16] MEDS: CEFTRIAXONE 1 G PREMIX 50 ML IV SCH (13:32)
[2017-01-17] VITALS (8 sets, daily range): BP systolic 96–126; BP diastolic 39–64
[2017-01-17] MEDS: IPRATROPIUM/ALBUTEROL 0.5-3(2.5)MG/3ML NEB HHN SCH ×2 (00:47→20:34)
[2017-01-17 06:26] LABS: HEMATOCRIT. 30.9 % (42.0-52.0); HEMOGLOBIN. 10.1 g/dL (14.0-18.0); MEAN CORPUSCULAR HEMOGLOBIN 27.3 pg (28.0-32.0); MEAN CORPUSCULAR VOLUME 83.2 fL (80.0-94.0); MEAN PLATELET VOLUME 9.2 fl (7.4-10.4); PLATELET 135 x1000/uL (130-400); RED BLOOD CELL COUNT 3.71 mill/uL (4.7-6.1); RED CELL DISTRIBUTION WIDTH 22.1 % (11.6-14.6)
[2017-01-17 07:51] LABS: PLATELET ESTIMATE NORMAL
[2017-01-17] MEDS: BLOOD SUGAR DIAGNOSTIC STRIP TEST SCH ×4 (07:58→21:00)
[2017-01-17] MEDS: INSULIN LISPRO 100 UNITS/ML SUBCUT SCH ×4 (08:00→21:00)
[2017-01-17] MEDS: PANTOPRAZOLE SODIUM 40 MG/VIAL IV SCH (08:16)
[2017-01-17] MEDS: CEFTRIAXONE 1 G PREMIX 50 ML IV SCH (11:20)
[2017-01-18] VITALS (9 sets, daily range): BP systolic 65–128; BP diastolic 25–85
[2017-01-18] MEDS: IPRATROPIUM/ALBUTEROL 0.5-3(2.5)MG/3ML NEB HHN SCH ×4 (01:49→20:19)
[2017-01-18 06:30] LABS: HEMATOCRIT. 30.7 % (42.0-52.0); MEAN PLATELET VOLUME 9.3 fl (7.4-10.4); PLATELET 124 x1000/uL (130-400); RED BLOOD CELL COUNT 3.71 mill/uL (4.7-6.1); RED CELL DISTRIBUTION WIDTH 22.2 % (11.6-14.6)
[2017-01-18] MEDS: BLOOD SUGAR DIAGNOSTIC STRIP TEST SCH ×4 (06:45→21:00)
[2017-01-18] MEDS: INSULIN LISPRO 100 UNITS/ML SUBCUT SCH ×4 (08:00→21:00)
[2017-01-18 08:37] LABS: BG BASE EXCESS 1.9 mmol/L (-2.0-2.0); BG DEOXYHEMOGLOBIN 5.2 % (0.0-5.0); BG FRACTION INSPIRED OXYGEN 21; BG HCO3 ACT 26.3 mmol/L (22.0-26.0); BG METHEMOGLOBIN 0.2 % (0.0-1.5); BG OXYGEN SATURATION 94.7 % (92.0-98.5); BG OXYHEMOGLOBIN 93.6 % (94.0-97.0); BG PCO2 40.3 mmHg (35.0-45.0); BG PH 7.432 (7.350-7.450); BG PO2 74.9 mmHg (75.0-100.0); BG SAMPLE SITE RIGHT RADIAL; BG TOTAL HEMOGLOBIN 11.5 g/dL (12.0-18.0); BG VENT MODE ROOM AIR
[2017-01-18] MEDS: PANTOPRAZOLE SODIUM 40 MG/VIAL IV SCH (09:24)
[2017-01-18] MEDS: ACETAMINOPHEN 325MG TABLET PO PRN ×2 (09:26→17:57)
[2017-01-18] MEDS: CEFTRIAXONE 1 G PREMIX 50 ML IV SCH (13:35)
[2017-01-18 13:59] LABS: PLATELET ESTIMATE SLIGHTLY DECREASED
[2017-01-19] VITALS (7 sets, daily range): BP systolic 85–145; BP diastolic 41–91
[2017-01-19] MEDS: IPRATROPIUM/ALBUTEROL 0.5-3(2.5)MG/3ML NEB HHN SCH ×3 (02:01→14:51)
[2017-01-19 06:41] LABS: BASOPHILS % 0.8 % (0.0-2.0); EOSINOPHILS % 1.2 % (0.0-5.0); HEMATOCRIT. 29.3 % (42.0-52.0); HEMOGLOBIN. 9.5 g/dL (14.0-18.0); LYMPHOCYTES % 9.5 % (20.0-50.0); MEAN CORPUSCULAR VOLUME 83.1 fL (80.0-94.0); MEAN PLATELET VOLUME 9.2 fl (7.4-10.4); MONOCYTES % 11.1 % (2.0-8.0); NEUTROPHILS % 77.4 % (40.0-76.0); PLATELET 130 x1000/uL (130-400); RED BLOOD CELL COUNT 3.52 mill/uL (4.7-6.1); RED CELL DISTRIBUTION WIDTH 22.3 % (11.6-14.6)
[2017-01-19] MEDS: BLOOD SUGAR DIAGNOSTIC STRIP TEST SCH ×2 (07:56→12:38)
[2017-01-19] MEDS: INSULIN LISPRO 100 UNITS/ML SUBCUT SCH ×2 (07:56→12:38)
[2017-01-19] MEDS: PANTOPRAZOLE SODIUM 40 MG/VIAL IV SCH (09:57)
[2017-01-19] MEDS ORDERED: LACTULOSE 20G/30ML UDC PO PRN (10:45)
[2017-01-20] MEDS ORDERED: FAMOTIDINE 20MG TABLET PO SCH (09:00)
== END 2017-01-19 17:34 | disposition home or self-care (01) | DRG 166 ==
LOC: ER 10:19 → ENRESERV 13:18 → 6WST 14:36 → CVICU 01-11 18:00 → 5EST 01-15 13:00
PROVIDERS: ADMIT Internal Medicine; ATTEND Internal Medicine
PROC: 5A1945Z Respiratory Ventilation, 24-96 Consecutive Hours (ICD-10-PCS; principal; 2017-01-11)
PROC: [UNRECOGNIZED PROCEDURE] (2017-01-11)
PROC: B51NZZZ Fluoroscopy of Left Upper Extremity Veins (ICD-10-PCS; 2017-01-11)
PROC: 05CY3ZZ Extirpation of Matter from Upper Vein, Percutaneous Approach (ICD-10-PCS; 2017-01-11)
PROC: 3E05317 Introduction of Other Thrombolytic into Peripheral Artery, Percutaneous Approach (ICD-10-PCS; 2017-01-11)
PROC: 03CY3ZZ Extirpation of Matter from Upper Artery, Percutaneous Approach (ICD-10-PCS; 2017-01-11)
PROC: 0BH17EZ Insertion of Endotracheal Airway into Trachea, Via Natural or Artificial Opening (ICD-10-PCS; 2017-01-11)
PROC: B31N1ZZ Fluoroscopy of Other Upper Arteries using Low Osmolar Contrast (ICD-10-PCS; 2017-01-11)
PROC: B5181ZZ Fluoroscopy of Superior Vena Cava using Low Osmolar Contrast (ICD-10-PCS; 2017-01-11)
PROC: B51W1ZZ Fluoroscopy of Dialysis Shunt/Fistula using Low Osmolar Contrast (ICD-10-PCS; 2017-01-11)
PROC: 5A1D60Z (ICD-10-PCS; 2017-01-11)
PROC: 30233N1 Transfusion of Nonautologous Red Blood Cells into Peripheral Vein, Percutaneous Approach (ICD-10-PCS; 2017-01-12)
PROC: 02HV33Z Insertion of Infusion Device into Superior Vena Cava, Percutaneous Approach (ICD-10-PCS; 2017-01-15)
PROC: B548ZZA Ultrasonography of Superior Vena Cava, Guidance (ICD-10-PCS; 2017-01-15)
DX: J96.00 Acute respiratory failure, unspecified whether with hypoxia or hypercapnia (principal); E43 Unspecified severe protein-calorie malnutrition; J18.9 Pneumonia, unspecified organism; I13.2 Hypertensive heart and chronic kidney disease with heart failure and with stage 5 chronic kidney disease, or end stage renal disease; T82.868A Thrombosis due to vascular prosthetic devices, implants and grafts, initial encounter; N18.6 End stage renal disease; I42.9 Cardiomyopathy, unspecified; J44.0 Chronic obstructive pulmonary disease with (acute) lower respiratory infection; F03.90 Unspecified dementia, unspecified severity, without behavioral disturbance, psychotic disturbance, mood disturbance, and anxiety; I46.9 Cardiac arrest, cause unspecified; Z68.1 Body mass index [BMI] 19.9 or less, adult; E11.22 Type 2 diabetes mellitus with diabetic chronic kidney disease; I50.9 Heart failure, unspecified; D64.9 Anemia, unspecified; E11.51 Type 2 diabetes mellitus with diabetic peripheral angiopathy without gangrene; E78.00 Pure hypercholesterolemia, unspecified; E83.39 Other disorders of phosphorus metabolism; E83.52 Hypercalcemia; F29 Unspecified psychosis not due to a substance or known physiological condition; F32.9 Major depressive disorder, single episode, unspecified; E87.5 Hyperkalemia; I27.2 Other secondary pulmonary hypertension; I70.209 Unspecified atherosclerosis of native arteries of extremities, unspecified extremity; Y83.2 Surgical operation with anastomosis, bypass or graft as the cause of abnormal reaction of the patient, or of later complication, without mention of misadventure at the time of the procedure; Y95 Nosocomial condition; Z87.891 Personal history of nicotine dependence; Z99.2 Dependence on renal dialysis; Z89.612 Acquired absence of left leg above knee
CPT/HCPCS: 36415; 36569; 36600; 36905; 70450; 71010; 71250; 76937; 80048; 80051; 80053; 80076; 82140; 82375; 82550; 82805; 82962; 83036; 83605; 83735; 83880; 84100; 84443; 84478; 84484; 85014; 85018; 85025; 85027; 85379; 85610; 86850; 86900; 86920; 87040; 87070; 92610; 94002; 94003; 94640; 96374; 99285; C1725; C1766; C1769; C2630; C9113; G0482; J0171; J0456; J0696; J1644; J1815; J2060; J2250; J2310; J2997; J3010; J3490; J7030; J7040; J7050; J7060; J7620; P9016; P9041; P9047; Q9967

== ENCOUNTER 2017-05-05 16:34 | Inpatient (IN) | payer MEDICARE, MEDICAID ==
[~2017-05-05] VITALS: Ht 165.1 cm; Wt 41.7 kg
[~2017-05-05 16:34] MED LIST changes: -AMLO10TA80 PO; -ATOR10TA69 PO; -COR12 PO; -DONE5TAB33 PO; +HYDR-4005 PO; -HYDR-4134 PO; -INSLAN SQ; -LEVVL SQ; -LORA-250 PO; -LORA1TAB PO; -MEMA10TA2 PO; -QUET25TA PO; -TRAZ-129 PO
[2017-05-05] MEDS ORDERED: SODIUM CHLORIDE 0.9% 250 ML IV ONE (17:00)
[2017-05-05 17:33] LABS: HEMATOCRIT. 41.1 % (42.0-52.0); HEMOGLOBIN. 13.6 g/dL (14.0-18.0); MEAN CORPUSCULAR HEMOGLOBIN 30.5 pg (28.0-32.0); MEAN CORPUSCULAR VOLUME 92.5 fL (80.0-94.0); MEAN PLATELET VOLUME 9.3 fl (7.4-10.4); PLATELET 101 x1000/uL (130-400); RED BLOOD CELL COUNT 4.45 mill/uL (4.7-6.1); RED CELL DISTRIBUTION WIDTH 19.1 % (11.6-14.6)
[2017-05-05 17:43] LABS: AMMONIA < 25 uMol/L (<32)
[2017-05-05 17:45] LABS: PLATELET ESTIMATE DECREASED
[2017-05-05 17:56] LABS: CHLORIDE 97 mEq/L (98-107)
[2017-05-05 18:02] LABS: CARBON DIOXIDE 26 mEq/L (21-32)
[2017-05-05 18:07] LABS: CREATINE KINASE 43 IU/L (39-308)
[2017-05-05] MEDS ORDERED: LORAZEPAM 2MG/ML CPJ IV ONE (18:45)
[2017-05-05 23:00] VITALS: BP 101/61
[2017-05-06] VITALS: BP 101/61
[2017-05-06] MEDS ORDERED: TRAZ-129 PO (00:05)
[2017-05-06] MEDS ORDERED: ZOLPIDEM TARTRATE 5MG TABLET PO PRN (01:30)
[2017-05-06] MEDS ORDERED: TRAZODONE HCL 50MG TABLET PO PRN (01:30)
[2017-05-06] MEDS ORDERED: ACETAMINOPHEN 325MG TABLET PO PRN (01:30)
[2017-05-06 04:00] VITALS: BP 122/73
[2017-05-06 08:00] VITALS: BP 93/54
[2017-05-06] MEDS: HYDRALAZINE HCL 25MG TABLET PO SCH ×2 (09:15→21:11)
[2017-05-06] MEDS: CARVEDILOL 12.5MG TABLET PO SCH ×2 (09:15→21:12)
[2017-05-06] MEDS: LACTULOSE 20G/30ML UDC PO SCH (09:28)
[2017-05-06] MEDS: DOCUSATE SODIUM 250MG CAPSULE PO SCH (09:51)
[2017-05-06] MEDS: FOLIC ACID 1MG TABLET PO SCH (09:52)
[2017-05-06] MEDS: SEVELAMER CARBONATE 800 MG TABLET PO SCH ×2 (11:37→18:03)
[2017-05-06] MEDS: BLOOD SUGAR DIAGNOSTIC STRIP TEST SCH ×3 (11:43→21:00)
[2017-05-06] MEDS: INSULIN LISPRO (MEDIUM DOSE) 100 UNITS/ML SUBCUT SCH ×3 (11:52→21:14)
[2017-05-06] MEDS ORDERED: BLOOD SUGAR DIAGNOSTIC STRIP TEST SCH (12:20)
[2017-05-06 12:25] VITALS: BP 125/72
[2017-05-06 16:00] VITALS: BP 128/74
[2017-05-06 20:00] VITALS: BP_SYST 110; BP_SYST 129; BP_DIAS 69; BP_DIAS 82
[2017-05-06] MEDS: DONEPEZIL HCL 5MG TABLET PO SCH (21:12)
[2017-05-06] MEDS: INSULIN DETEMIR UD 100 UNITS/ML SYR SUBCUT SCH (21:15)
[2017-05-07] VITALS: BP 109/66
[2017-05-07] MEDS: IPRATROPIUM/ALBUTEROL 0.5-3(2.5)MG/3ML NEB HHN SCH ×4 (01:42→20:46)
[2017-05-07 04:00] VITALS: BP 100/56
[2017-05-07] MEDS: DEXTROSE 50% WATER 50ML SYRINGE IV PRN (06:44)
[2017-05-07] MEDS: BLOOD SUGAR DIAGNOSTIC STRIP TEST SCH ×4 (07:20→21:35)
[2017-05-07] MEDS: INSULIN LISPRO (MEDIUM DOSE) 100 UNITS/ML SUBCUT SCH ×4 (07:50→21:00)
[2017-05-07 07:57] VITALS: BP 109/60
[2017-05-07] MEDS: CARVEDILOL 12.5MG TABLET PO SCH ×2 (09:00→21:27)
[2017-05-07] MEDS: HYDRALAZINE HCL 25MG TABLET PO SCH ×2 (09:00→21:27)
[2017-05-07] MEDS: LACTULOSE 20G/30ML UDC PO SCH (09:34)
[2017-05-07] MEDS: FOLIC ACID 1MG TABLET PO SCH (09:34)
[2017-05-07] MEDS: SEVELAMER CARBONATE 800 MG TABLET PO SCH ×3 (09:34→18:56)
[2017-05-07] MEDS: DOCUSATE SODIUM 250MG CAPSULE PO SCH (09:34)
[2017-05-07 10:51] LABS: HEMOGLOBIN. 11.1 g/dL (14.0-18.0); MEAN CORPUSCULAR VOLUME 92.1 fL (80.0-94.0); MEAN PLATELET VOLUME 8.2 fl (7.4-10.4); PLATELET 98 x1000/uL (130-400); RED CELL DISTRIBUTION WIDTH 18.6 % (11.6-14.6)
[2017-05-07 12:22] VITALS: BP 114/66
[2017-05-07 13:59] LABS: PLATELET ESTIMATE DECREASED
[2017-05-07 16:00] VITALS: BP 122/90
[2017-05-07 20:00] VITALS: BP 115/73
[2017-05-07] MEDS: DONEPEZIL HCL 5MG TABLET PO SCH (21:27)
[2017-05-07] MEDS: INSULIN DETEMIR UD 100 UNITS/ML SYR SUBCUT SCH (21:35)
[2017-05-08] VITALS: BP 121/66
[2017-05-08] MEDS: IPRATROPIUM/ALBUTEROL 0.5-3(2.5)MG/3ML NEB HHN SCH ×3 (02:39→21:31)
[2017-05-08 04:00] VITALS: BP 140/74
[2017-05-08 06:34] LABS: BASOPHILS % 0.9 % (0.0-2.0); EOSINOPHILS % 1.1 % (0.0-5.0); HEMOGLOBIN. 11.6 g/dL (14.0-18.0); LYMPHOCYTES % 8.4 % (20.0-50.0); MEAN CORPUSCULAR HEMOGLOBIN 29.8 pg (28.0-32.0); MEAN CORPUSCULAR VOLUME 92.3 fL (80.0-94.0); MEAN PLATELET VOLUME 8.9 fl (7.4-10.4); MONOCYTES % 12.1 % (2.0-8.0); NEUTROPHILS % 77.5 % (40.0-76.0); PLATELET 97 x1000/uL (130-400); RED CELL DISTRIBUTION WIDTH 18.6 % (11.6-14.6)
[2017-05-08] MEDS: DEXTROSE 50% WATER 50ML SYRINGE IV PRN (06:58)
[2017-05-08] MEDS: BLOOD SUGAR DIAGNOSTIC STRIP TEST SCH ×4 (07:44→21:34)
[2017-05-08] MEDS ORDERED: GLUCAGON,HUMAN RECOMBINANT 1MG/VIAL IM NR (07:45)
[2017-05-08 08:09] VITALS: BP 158/77
[2017-05-08] MEDS ORDERED: LACTULOSE 20G/30ML UDC PO PRN (09:00)
[2017-05-08] MEDS: CARVEDILOL 12.5MG TABLET PO SCH ×2 (09:00→21:34)
[2017-05-08] MEDS: HYDRALAZINE HCL 25MG TABLET PO SCH ×2 (09:00→21:34)
[2017-05-08] MEDS ORDERED: DOCUSATE SODIUM 250MG CAPSULE PO PRN (09:00)
[2017-05-08] MEDS: FOLIC ACID 1MG TABLET PO SCH (09:37)
[2017-05-08] MEDS: SEVELAMER CARBONATE 800 MG TABLET PO SCH ×3 (09:41→17:54)
[2017-05-08 11:01] LABS: PHOSPHORUS 4.2 mg/dL (2.5-4.9)
[2017-05-08 12:00] VITALS: BP 126/69
[2017-05-08] MEDS: INSULIN LISPRO 100 UNITS/ML SUBCUT SCH ×3 (12:50→21:00)
[2017-05-08 16:00] VITALS: BP 119/61
[2017-05-08 20:00] VITALS: BP 134/72
[2017-05-08] MEDS: DONEPEZIL HCL 5MG TABLET PO SCH (21:34)
[2017-05-09] VITALS: BP 130/70
[2017-05-09] MEDS: IPRATROPIUM/ALBUTEROL 0.5-3(2.5)MG/3ML NEB HHN SCH ×4 (01:32→21:02)
[2017-05-09 04:00] VITALS: BP 97/55
[2017-05-09 05:06] LABS: HEMATOCRIT. 32.5 % (42.0-52.0); HEMOGLOBIN. 10.8 g/dL (14.0-18.0); MEAN PLATELET VOLUME 8.6 fl (7.4-10.4); PLATELET 82 x1000/uL (130-400); RED BLOOD CELL COUNT 3.49 mill/uL (4.7-6.1); RED CELL DISTRIBUTION WIDTH 18.2 % (11.6-14.6)
[2017-05-09] MEDS: BLOOD SUGAR DIAGNOSTIC STRIP TEST SCH ×4 (06:33→21:58)
[2017-05-09 08:00] VITALS: BP 114/71
[2017-05-09 08:12] LABS: PLATELET ESTIMATE DECREASED
[2017-05-09] MEDS: FOLIC ACID 1MG TABLET PO SCH (08:54)
[2017-05-09] MEDS: SEVELAMER CARBONATE 800 MG TABLET PO SCH ×3 (08:54→17:32)
[2017-05-09] MEDS: HYDRALAZINE HCL 25MG TABLET PO SCH ×2 (08:54→21:57)
[2017-05-09] MEDS: CARVEDILOL 12.5MG TABLET PO SCH ×2 (08:59→21:00)
[2017-05-09] MEDS: INSULIN LISPRO 100 UNITS/ML SUBCUT SCH ×4 (09:10→21:00)
[2017-05-09 12:00] VITALS: BP 93/53
[2017-05-09] MEDS: PANTOPRAZOLE 40MG DR TABLET PO SCH (12:09)
[2017-05-09 16:00] VITALS: BP 98/58
[2017-05-09 20:00] VITALS: BP 111/68
[2017-05-09] MEDS: DONEPEZIL HCL 5MG TABLET PO SCH (21:57)
[2017-05-10] VITALS: BP 136/70
[2017-05-10] MEDS: IPRATROPIUM/ALBUTEROL 0.5-3(2.5)MG/3ML NEB HHN SCH ×2 (01:00→09:46)
[2017-05-10 04:00] VITALS: BP 116/80
[2017-05-10] MEDS: PANTOPRAZOLE 40MG DR TABLET PO SCH (05:53)
[2017-05-10] MEDS: BLOOD SUGAR DIAGNOSTIC STRIP TEST SCH ×2 (05:54→12:20)
[2017-05-10] MEDS: INSULIN LISPRO 100 UNITS/ML SUBCUT SCH (05:55)
[2017-05-10 07:56] VITALS: BP 96/58
[2017-05-10] MEDS: HYDRALAZINE HCL 25MG TABLET PO SCH (09:00)
[2017-05-10] MEDS: SEVELAMER CARBONATE 800 MG TABLET PO SCH (09:43)
[2017-05-10] MEDS: FOLIC ACID 1MG TABLET PO SCH (09:43)
[2017-05-10 09:58] LABS: HEMATOCRIT. 37.4 % (42.0-52.0); MEAN CORPUSCULAR HEMOGLOBIN 30.2 pg (28.0-32.0); MEAN CORPUSCULAR VOLUME 94.2 fL (80.0-94.0); MEAN PLATELET VOLUME 9.4 fl (7.4-10.4); PLATELET 81 x1000/uL (130-400); RED BLOOD CELL COUNT 3.97 mill/uL (4.7-6.1); RED CELL DISTRIBUTION WIDTH 18.4 % (11.6-14.6)
[2017-05-10 11:21] LABS: PLATELET ESTIMATE SLIGHTLY DECREASED
[2017-05-10 12:00] VITALS: BP 124/68
[2017-05-10 14:23] VITALS: BP 124/68
== END 2017-05-10 15:05 | disposition home or self-care (01) | DRG 291 ==
LOC: ER 16:51 → 6WST 20:38 → EDBEDREQ 20:48 → CANRESERV 21:23 → ENRESERV 21:23
PROVIDERS: ADMIT Internal Medicine; ATTEND Internal Medicine
PROC: 5A1D70Z Performance of Urinary Filtration, Intermittent, Less than 6 Hours Per Day (ICD-10-PCS; principal; 2017-05-06)
PROC: 5A1D70Z Performance of Urinary Filtration, Intermittent, Less than 6 Hours Per Day (ICD-10-PCS; 2017-05-08)
PROC: 5A1D70Z Performance of Urinary Filtration, Intermittent, Less than 6 Hours Per Day (ICD-10-PCS; 2017-05-10)
DX: I13.2 Hypertensive heart and chronic kidney disease with heart failure and with stage 5 chronic kidney disease, or end stage renal disease (principal); N18.6 End stage renal disease; J96.20 Acute and chronic respiratory failure, unspecified whether with hypoxia or hypercapnia; E11.22 Type 2 diabetes mellitus with diabetic chronic kidney disease; E11.51 Type 2 diabetes mellitus with diabetic peripheral angiopathy without gangrene; K92.0 Hematemesis; I50.23 Acute on chronic systolic (congestive) heart failure; J44.1 Chronic obstructive pulmonary disease with (acute) exacerbation; E87.5 Hyperkalemia; Z99.2 Dependence on renal dialysis; F29 Unspecified psychosis not due to a substance or known physiological condition; F03.90 Unspecified dementia, unspecified severity, without behavioral disturbance, psychotic disturbance, mood disturbance, and anxiety; D64.9 Anemia, unspecified; E11.649 Type 2 diabetes mellitus with hypoglycemia without coma; E78.00 Pure hypercholesterolemia, unspecified; F17.210 Nicotine dependence, cigarettes, uncomplicated; Z79.899 Other long term (current) drug therapy; Z86.73 Personal history of transient ischemic attack (TIA), and cerebral infarction without residual deficits; Z89.612 Acquired absence of left leg above knee
CPT/HCPCS: 36415; 70450; 71010; 80048; 80051; 80053; 82140; 82550; 82962; 83036; 83605; 83880; 84100; 84443; 84484; 85025; 87040; 93005; 94640; 94664; 96360; 99285; C1893; J1610; J1815; J7030; J7050; J7620